=== PATIENT | male | born 2005 | race Caucasian/White ===

== ENCOUNTER 2023-04-13 17:14 | Emergency (ER) | payer OTHER, SELFPAY ==
--- NOTE | ~2023-04-13 | XR_ITS ---
EXAMINATION: XR hand RT min 3V INDICATION: Right hand pain TECHNIQUE: Three views of the right hand are obtained. COMPARISON: None available FINDINGS: No fracture, dislocation, or subluxation. The bones, soft tissues, and joint spaces are nor mal. IMPRESSION: 1. No acute osseous abnormality. Reviewed, dictated and finalized at location F.
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
[2023-04-13 17:32] VITALS: BP 144/77; PULSE 83; RESP 18; TEMP 37.1; O2SAT 98
--- NOTE | 2023-04-13 18:14 | PC.NURSE ---
+PMS [employer] [place] APPLICATION
== END 2023-04-13 18:10 | disposition home or self-care (01) ==
PROVIDERS: Emergency Provider Nurse Practitioner Family; PCP Family Medicine
DX: S60.221A Contusion of right hand, initial encounter (principal); V43.52XA Car driver injured in collision with other type car in traffic accident, initial encounter
CPT/HCPCS: 73130; 99213; G0463